=== PATIENT | male | born 1995 | race Caucasian/White ===

== ENCOUNTER 2017-06-11 14:48 | Emergency (ER) | payer MEDICAID ==
[~2017-06-11] VITALS: Ht 175.3 cm; Wt 99.8 kg
[2017-06-11 14:52] VITALS: BP 122/78
[2017-06-11] MEDS ORDERED: LORazepam 2 MG/ML VIAL IM ONE (15:05)
[2017-06-11] MEDS ORDERED: HALOPERIDOL IM 5 MG/ML VIAL IM ONE (15:05)
[2017-06-11] MEDS ORDERED: NACL 0.9% 1,000 ML IV ONE ×2 (15:10→16:30)
[2017-06-11] MEDS ORDERED: HALOPERIDOL IM 5 MG/ML VIAL ONE (15:12)
[2017-06-11] MEDS ORDERED: LORazepam 2 MG/ML VIAL ONE (15:13)
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
[2017-06-11 15:47] LABS: HEMATOCRIT 59.6 % (36-52); HEMOGLOBIN 19.8 g/dL (12.0-18.0); MEAN CORPUSCULAR HEMOGLOBIN 28 pg (27-31); MEAN CORPUSCULAR HGB CONC 33 g/dL (33-37); MEAN CORPUSCULAR VOLUME 83 fL (80-94); PLATELET COUNT (AUTO) 332 K/uL (140-450); RED BLOOD CELL COUNT(AUTO) 7.17 MIL/uL (4.20-6.10); RED CELL DISTRIBUTION WIDTH 12.6 % (11.6-13.7); WHITE BLOOD COUNT (AUTO) 18.3 K/uL (4.8-10.8)
[2017-06-11 15:58] LABS: PROTHROMBIN TIME 11.6 secs (10.8-13.4)
[2017-06-11 15:59] LABS: ANION GAP 24.2 (8-16); CARBON DIOXIDE 17.9 mmol/L (21-32); CHLORIDE 99 mmol/L (98-107); CREATININE 2.1 mg/dL (0.7-1.3); GFR ARICAN-AMERICAN 50 mL/min (>90); GLUCOSE 190 mg/dL (74-106); POTASSIUM 3.1 mmol/L (3.5-5.1); SODIUM SERUM 138 mmol/L (136-145); UREA NITROGEN, BLOOD 19 mg/dL (7-18)
[2017-06-11 16:03] LABS: LYMPHOCYTES % (MANUAL) 17 % (20-46); MONOCYTES % (MANUAL) 3 % (5-12)
[2017-06-11 16:05] LABS: ALBUMIN 4.9 g/dL (3.4-5.0); ASPARTATE AMINOTRANSFERASE 83 U/L (15-37); TOTAL BILIRUBIN 1.2 mg/dL (0.0-1.0)
[2017-06-11 16:06] LABS: ACETAMINOPHEN < 0.5 ug/ml (10-30); SALICYLATE < 2.8 mg/dL (2.8-20.0)
[2017-06-11] MEDS ORDERED: POTASSIUM CHLORIDE 10 MEQ TABER PO ONE (16:30)
[2017-06-11] MEDS ORDERED: QUET50TA PO (17:01)
[2017-06-11] MEDS ORDERED: SERT100T PO (17:01)
[2017-06-11] MEDS ORDERED: ESK300 PO (17:01)
[2017-06-11] MEDS ORDERED: GABA400C PO (17:01)
[2017-06-11 19:08] VITALS: BP 122/78
--- NOTE | 2017-06-11 19:09 | NUR ---
Patient discharged with v/s stable. Written and verbal after care instructions given and explained. Patient verbalized understanding. Ambulatory with steady gait. All questions addressed prior to discharge. Advised to follow up with PMD.
== END 2017-06-11 19:09 | disposition home or self-care (01) ==
LOC: MED 14:48
DX: F15.10 Other stimulant abuse, uncomplicated (principal); F22 Delusional disorders
CPT/HCPCS: 36415; 80053; 80178; 85025; 85610; 96360; 96361; 96372; 99284; G0480; G0482; J1630; J2060; J7030